=== PATIENT | male | born 1940 | race Caucasian/White ===

== ENCOUNTER 2016-08-07 17:33 | Inpatient (IN) | payer OTHER, MEDICARE ==
[~2016-08-07] VITALS: Ht 165.1 cm; Wt 99.6 kg
[~2016-08-07 17:33] MED LIST: ADVAIR 250/501 DISK IH; ADVAIR HFA120 INHAL2 IH; AMITRIPTYLINE H10 MG PO; AMLODIPINE BESYL5 MG PO; AMLODIPINE PO; ANORO ELLIPTA1 EACH PO; ATORVASTATIN CA80 MG PO; CEFUROXIME500 MG PO; CENTRUM MEN'S1 EACH PO; CHLORTHALIDONE25 MG PO; CITALOPRAM HBR10 MG PO; COLACE100 MG PO; CYCLOBENZAPRINE10 MG PO; DITROPAN XL5 MG PO; DITROPAN5 MG PO; DOCUSATE SODIU100 MG PO; DOK PLUS TABLE1 EACH PO; ELAVIL50 MG PO; ENDOCET 5-3251 EACH PO; FERROUS SULFAT325 MG PO; FUROSEMIDE20 MG PO; FUROSEMIDE40 MG PO; LIPITOR PO; LIPITOR80 MG PO; LO-DOSE ASPIRIN81 M1 PO; LO-DOSE ASPIRIN81 M2 PO; LOSARTAN POTAS100 MG PO; MELATONIN10 M1 PO; METOPROLOL TART25 MG PO; METOPROLOL TART50 MG PO; MULTIVITAMIN PO; MULTIVITAMIN1 EAC2 PO; NORVASC10 MG PO; NORVASC5 MG PO; OMEPRAZOLE40 M1 PO; PLETAL50 MG PO; POLYETHYLENE GL17 GM PO; PREDNISONE10 MG PO; PREDNISONE20 MG PO; PRESERVISION S1 EACH PO; PRESERVISION T1 EACH PO; PREVACID30 MG PO; REQUIP0.5 MG PO; SENNA8.6 MG PO; SPIRIVA RESPIMAT4 GM IH; ST. JOSEPH ASP325 MG PO; SYMBICORT60 INHALA1 PO; TOPROL XL50 MG PO; TYLENOL PM1 CAPLET PO; VITAMIN B-6100 MG PO; ZETIA PO; ZETIA10 MG PO
[2016-08-07 18:38] LABS: HEMATOCRIT 43.2 % (38.0-50.0); MCHC 33.1 G/DL (30.0-36.0); MCV 93.5 FL (86-99); PLATELET COUNT 162 K/uL (156-360); RBC DIS.WIDTH-CV 14.6 % (11.8-14.6); RBC DIS.WIDTH-SD 49.1 % (39-53); RED BLOOD COUNT 4.62 M/uL (4.00-5.50); WHITE BLOOD COUNT 6.5 K/uL (4.1-10.2)
[2016-08-07 18:59] LABS: TROP-I INTERPRETATION NEGATIVE; TROPONIN-I < 0.01 ng/mL (0.0-0.30)
[2016-08-07 19:08] LABS: CHLORIDE 107 mEq/L (99-109); SODIUM 141 mEq/L (136-147)
[2016-08-07 19:10] LABS: GLUCOSE 161 mg/dL (70-99)
[2016-08-07 19:11] LABS: ANION GAP 8 MEQ/L (2-14)
[2016-08-07 19:14] LABS: GFR ESTIMATE (CALCULATED) 53 mL/min/
[2016-08-07 19:15] LABS: UREA NITROGEN (BUN) 25 mg/dL (9-23)
[2016-08-07] MEDS ORDERED: LASIX40 MG PO (19:51)
[2016-08-07] MEDS ORDERED: AMLODIPINE BESY10 MG PO (19:51)
[2016-08-07] MEDS ORDERED: FERROUS SULFAT325 MG PO (19:54)
[2016-08-07] MEDS ORDERED: SPIRIVA1 INHALATI IH (19:55)
[2016-08-07] MEDS ORDERED: VENTOLIN HFA18 GM IH (19:56)
[2016-08-07 22:29] VITALS: BP 175/90
[2016-08-07 23:28] LABS: POINT-OF-CARE METER ID UU14174225
[2016-08-08 01:33] LABS: TROP-I INTERPRETATION NEGATIVE; TROPONIN-I < 0.01 ng/mL (0.0-0.30)
[2016-08-08 04:01] VITALS: BP 124/58
[2016-08-08 06:50] LABS: TROP-I INTERPRETATION NEGATIVE; TROPONIN-I < 0.01 ng/mL (0.0-0.30)
[2016-08-08 09:09] VITALS: BP 153/72
[2016-08-08 09:49] LABS: ANION GAP 11 MEQ/L (2-14); CHLORIDE 102 MEQ/L (99-109); GFR ESTIMATE (CALCULATED) 57 mL/min/; POTASSIUM 3.5 MEQ/L (3.7-5.4); SAMPLE HEMOLYSIS CHECK 0; SAMPLE ICTERIC CHECK 0; SAMPLE LIPEMIA CHECK 0; SODIUM 140 MEQ/L (136-147); UREA NITROGEN (BUN) 22 mg/dL (9-23)
[2016-08-08 09:54] LABS: GLUCOSE 118 mg/dL (70-99)
[2016-08-08 12:59] LABS: POINT-OF-CARE METER ID UU14188625
[2016-08-08 13:13] VITALS: BP 149/80
[2016-08-08 15:41] VITALS: BP 152/62
[2016-08-08 17:06] LABS: POINT-OF-CARE METER ID UU14188625
[2016-08-08 19:48] VITALS: BP 140/63
[2016-08-08 21:29] LABS: POINT-OF-CARE METER ID UU14174225
[2016-08-08 23:43] VITALS: BP 130/60
[2016-08-09] VITALS (7 sets, daily range): BP systolic 133–145; BP diastolic 62–67
[2016-08-09 08:14] LABS: POINT-OF-CARE METER ID UU14174225
[2016-08-09 09:21] LABS: CHLORIDE 98 mEq/L (99-109); POTASSIUM 3.8 mEq/L (3.7-5.4); SODIUM 137 mEq/L (136-147)
[2016-08-09 09:22] LABS: GLUCOSE 158 mg/dL (70-99)
[2016-08-09 09:24] LABS: ANION GAP 10 MEQ/L (2-14)
[2016-08-09 09:26] LABS: GFR ESTIMATE (CALCULATED) 53 mL/min/
[2016-08-09 09:28] LABS: UREA NITROGEN (BUN) 35 mg/dL (9-23)
[2016-08-09 11:31] LABS: POINT-OF-CARE METER ID UU14188625
[2016-08-09 21:38] LABS: POINT-OF-CARE METER ID UU14188625
[2016-08-10] VITALS: BP 132/60
[2016-08-10 04:02] VITALS: BP 133/64
[2016-08-10 07:26] LABS: MCH 31.7 PG (29.0-34.0); MCHC 34.5 G/DL (30.0-36.0); MCV 91.9 FL (86-99); MEAN PLAT.VOLUME 10.9 uM^3 (9.0-12.4); PLATELET COUNT 187 K/uL (156-360); RBC DIS.WIDTH-CV 14.4 % (11.8-14.6); RBC DIS.WIDTH-SD 47.5 % (39-53); RED BLOOD COUNT 4.79 M/uL (4.00-5.50); WHITE BLOOD COUNT 10.5 K/uL (4.1-10.2)
[2016-08-10 07:46] VITALS: BP 156/72
[2016-08-10 07:57] LABS: ANION GAP 12 MEQ/L (2-14); CHLORIDE 100 MEQ/L (99-109); GFR ESTIMATE (CALCULATED) 57 mL/min/; GLUCOSE 131 mg/dL (70-99); MAGNESIUM 2.3 mg/dl (1.3-2.7); POTASSIUM 3.7 MEQ/L (3.7-5.4); SAMPLE HEMOLYSIS CHECK 0; SAMPLE ICTERIC CHECK 0; SAMPLE LIPEMIA CHECK 0; SODIUM 140 MEQ/L (136-147); UREA NITROGEN (BUN) 47 mg/dL (9-23)
[2016-08-10 11:18] VITALS: BP 129/60
[2016-08-10] MEDS ORDERED: PREDNISONE5 MG PO (14:10)
[2016-08-10] MEDS ORDERED: PROVENTIL,2.5 MG/3 M IH (14:10)
[2016-08-10] MEDS ORDERED: LISINOPRIL2.5 MG PO (14:54)
[2016-08-10 15:29] VITALS: BP 156/72
== END 2016-08-10 17:13 | disposition home health service (06) | DRG 291 ==
LOC: EME 17:33 → EDOF 19:58 → 5SOUTH 19:58
PROVIDERS: Emergency Medicine; Internal Medicine
DX: I13.0 Hypertensive heart and chronic kidney disease with heart failure and stage 1 through stage 4 chronic kidney disease, or unspecified chronic kidney disease (principal); N17.9 Acute kidney failure, unspecified; C90.00 Multiple myeloma not having achieved remission; E11.22 Type 2 diabetes mellitus with diabetic chronic kidney disease; I27.2 Other secondary pulmonary hypertension; E66.01 Morbid (severe) obesity due to excess calories; J44.0 Chronic obstructive pulmonary disease with (acute) lower respiratory infection; I50.33 Acute on chronic diastolic (congestive) heart failure; G47.33 Obstructive sleep apnea (adult) (pediatric); D47.2 Monoclonal gammopathy; I44.4 Left anterior fascicular block; J20.9 Acute bronchitis, unspecified; J44.1 Chronic obstructive pulmonary disease with (acute) exacerbation; N18.3 Chronic kidney disease, stage 3 (moderate); F32.9 Major depressive disorder, single episode, unspecified; E78.00 Pure hypercholesterolemia, unspecified; Z87.891 Personal history of nicotine dependence; Z68.36 Body mass index [BMI] 36.0-36.9, adult; R07.89 Other chest pain; K21.9 Gastro-esophageal reflux disease without esophagitis; I35.0 Nonrheumatic aortic (valve) stenosis; R00.1 Bradycardia, unspecified
CPT/HCPCS: 36415; 71010; 71020; 80048; 80053; 82728 GA; 82948; 83540 GA; 83735; 83880; 84466 GA; 84484; 85025; 85027; 85379; 86900; 86901; 93005; 94640; 94640 76; 94660; 94799; 99202; 99281; 99285; J1644; J1815; J1940; J2930; J7512